=== PATIENT | male | born 1980 | race Caucasian/White ===

== ENCOUNTER 2020-07-18 12:57 | Outpatient (REF) | payer OTHER, SELFPAY | END 2020-07-18 12:58 | disposition home or self-care (01) | LOC: HO.LAB 12:57 | PROVIDERS: Visit Provider Internal Medicine | DX: Z20.828 Contact with and (suspected) exposure to other viral communicable diseases (principal) | CPT/HCPCS: 36415; C9803; U0003 ==

== ENCOUNTER 2021-01-05 02:30 | Emergency (ER) | payer OTHER, SELFPAY ==
--- NOTE | ~2021-01-05 | XR_ITS ---
EXAMINATION: XR HAND/WRIST, RIGHT CLINICAL INFORMATION: /o fx , 5th metacarpal, wrist pain COMPARISON: None TECHNIQUE: PA, lateral, and oblique views of the right hand and wrist. FINDINGS: A mildly comminuted transverse fracture is present at the fifth metacarpal necks with apex dorsal and apex medial angulation. Surrounding soft tissues are swollen and edematous. No additional fractures are identified. No appreciable intra-articular involvement. XR/XR hand wrist RT IMPRESSION: Mildly comminuted transverse fracture of the fifth metacarpal neck.
[2021-01-05 02:49] VITALS: BP 132/82; PULSE 68; RESP 16; TEMP 36.4; O2SAT 98; BMI 32.5
--- NOTE | 2021-01-05 03:02 | ED.EXTPRO ---
HPI - Extremity Problem General Chief complaint: Extremity Injury, Upper Stated complaint: Hand Injury Time Seen by Provider: 01/05/21 02:59 Source: patient Mode of arrival: ambulatory Limitations: no limitations History of Present Illness HPI Narrative: Patient comes emergency room complaining of right-sided hand pain. Prior to arrival, patient states that he punched a refrigerator. Patient complaining of pain on the 5th metacarpal. Patient denies any other injuries Related Data Previous Rx's Medication Instructions Recorded ibuprofen 600 mg PO Q6H PRN #14 tab 01/05/21 Allergies Allergy/AdvReac Type Severity Reaction Status Date / Time No Known Allergies Allergy Verified 01/05/21 02:52 [No Known Allergies*] Review of Systems Review of Systems: Constitutional : No Weight loss, No Fever, No Chills, No Night Sweats, No Fatigue, No Malaise ENT/Mouth : No Hearing loss, No Ear Pain, No Nasal Congestion, No Sinus Pain, No Hoarseness, No sore throat, No Rhinorrhea, No Swallowing Difficulty Eyes: No Eye Pain, No Swelling, No Redness, No Foreign Body, No Discharge, No Vision Changes Cardiovascular : No Chest Pain, No SOB, No Dyspnea on Exertion, No Orthopnea, No Edema, No Palpitations Respiratory : No Cough, No Sputum, No Wheezing, No Smoke Exposure, No Dyspnea Gastrointestinal : No Nausea, No Vomiting, No Diarrhea, No Constipation, No abdominal Pain, No Hematochezia, No Melena Genitourinary : no irregular bleeding, No Dysuria, No Urinary Frequency, No Hematuria, No Urinary Incontinence, No Urgency, No Flank Pain, No Urinary Flow Changes, No Hesitancy Musculoskeletal : right-sided head pain and wrist pain, localized swelling, No Myalgias, No Joint Swelling Skin : No Skin Lesions, No rash Neuro : No Weakness, No Numbness, No Paresthesias, No Loss of Consciousness, No Dizziness, No Headache Psych : No Anxiety/Panic, No Depression, No SI/HI/AH/VH, No Social Issues, Heme/Lymph: No Bruising, No Bleeding,No Lymphadenopathy Endocrine : No Polyuria, No Polydipsia, No Temperature Intolerance PMFSH Social History Social History Advance Directives: No Physical Exam Vital Signs: Vital Signs: Last Vital Signs Temp 97.6 F 01/05/21 02:49 Pulse 68 06/27/21 02:49 Resp 16 01/05/21 02:49 BP 132/82 01/05/21 02:49 Pulse Ox 98 01/05/21 02:49 Body Mass Index 32.5 Appearance: Alert. Oriented X3. No acute distress. Eyes: Pupils equal, round and reactive to light. ENT: Pharynx normal. Neck: Normal inspection. Neck supple. No lymph nodes noted. No crepitus CVS: Normal heart rate and rhythm. Pulses normal. Normal S1 and S2 Respiratory: No respiratory distress. Breath sounds normal. No Wheezing. No rales Abdomen: Soft and nontender. No rigidity. No distention. good BS x4 Skin: Skin warm and dry. Normal skin color. Normal skin turgor. Extremities: No lower extremity edema. swelling and deformity above the 5th metacarpal, likely fractured Neuro: Oriented X 3. No motor deficit. No sensory deficit. Moving all extermities. No slurred speech. Course Course Course Narrative: discussed x-ray with the patient, patient was given a volar splint, instructed to follow-up with orthopedics. discussed the x-ray with Orthopedics for follow-up MDM - Extremity (Nontraumatic) Imaging Data hand and wrist x rAY: Radiologist's impression: A mildly comminuted transverse fracture is present at the fifth metacarpal necks with apex dorsal and apex medial angulation. Surrounding soft tissues are swollen and edematous. No additional fractures are identified. No appreciable intra-articular involvement. XR/XR hand wrist RT IMPRESSION: Mildly comminuted transverse fracture of the fifth metacarpal neck. Discharge Plan Discharge Clinical Impression: Fracture, metacarpal Qualifiers: Encounter type: initial encounter Metacarpal bone: fifth Fracture type: closed Metacarpal location: neck Laterality: right Patient Disposition: Home, Self-Care Instructions: Boxer Fracture (ED) Additional Instructions: Please follow-up with your primary care physician tomorrow. If you have any worsening or new symptoms, please return to the emergency room or call 911 Prescriptions: New ibuprofen 600 mg tablet 600 mg PO Q6H PRN (Reason: pain) Qty: 14 RF: 0
[2021-01-05] MEDS: Ibuprofen 600 MG TABLET PO (03:07)
--- NOTE | 2021-01-05 04:19 | PC.NURSE ---
PT'S RIGHT HAND AND FOREARM SECURED WITH HARD SPLINT AND CAMDEN WRAP. GOOD CIRCULATION PRIOR TO AND FOLLOWING SPLINT.
== END 2021-01-05 04:21 | disposition home or self-care (01) ==
PROVIDERS: Emergency Provider Emergency Medicine
DX: S62.336A Displaced fracture of neck of fifth metacarpal bone, right hand, initial encounter for closed fracture (principal); W22.09XA Striking against other stationary object, initial encounter; Y93.9 Activity, unspecified; Y92.9 Unspecified place or not applicable; Y99.9 Unspecified external cause status
CPT/HCPCS: 73110; 73130; 99283

== ENCOUNTER → 2021-01-06 14:07 | Outpatient (BNVA) | payer OTHER, SELFPAY | PROVIDERS: Visit Provider Physician Assistant | DX: S62.366A Nondisplaced fracture of neck of fifth metacarpal bone, right hand, initial encounter for closed fracture (principal); W22.09XA Striking against other stationary object, initial encounter; Y93.9 Activity, unspecified; Y92.69 Other specified industrial and construction area as the place of occurrence of the external cause; Y99.8 Other external cause status | CPT/HCPCS: 26600; 29085; 99202 ==

== ENCOUNTER 2021-01-22 08:30 | Outpatient (REF) | payer OTHER, SELFPAY | END 2021-01-22 08:31 | disposition home or self-care (01) | LOC: HO.HOSX 08:30 | PROVIDERS: Visit Provider Orthopaedic Surgery | DX: Z13.89 Encounter for screening for other disorder (principal) ==

== ENCOUNTER 2021-05-14 20:09 | Emergency (ER) | payer OTHER, SELFPAY ==
[2021-05-14 20:18] VITALS: BP 123/87; PULSE 88; RESP 18; TEMP 36.6; O2SAT 98; BMI 29.5
[2021-05-14] MEDS: Tetracaine HCl/PF 0.5% Oph Sol 4 ML DROPS 3 DROP EYE-BOTH (20:21)
--- NOTE | 2021-05-14 20:22 | ED_ITS ---
HPI - General Adult General Chief complaint: General Medical Stated complaint: maced in the eyes Time Seen by Provider: 05/14/21 20:15 Source: patient Mode of arrival: ambulatory Limitations: no limitations History of Present Illness MD complaint: mace to eyes Onset (ago): minute(s) (just [employer]) Location: eyes Severity: severe Quality: burning Pain Consistency: constant Relieving factors: none Exacerbating factors: other (touching eyes) Associated symptoms: denies other symptoms Treatments prior to arrival: none Related Data Previous Rx's Medication Instructions Recorded ibuprofen 600 mg tablet 600 mg PO Q6H PRN #14 tab 01/05/21 Allergies Allergy/AdvReac Type Severity Reaction Status Date / Time No Known Allergies Allergy Verified 01/05/21 02:52 [No Known Allergies*] Review of Systems Review of Systems: Constitutional : No Fever, No Chills Eyes: pos Eye Pain, No Swelling, pos Redness Cardiovascular : No Chest Pain, No SOB Respiratory : No Cough, No Sputum, No Wheezing Gastrointestinal : No Nausea, No Vomiting Skin : No Skin Lesions, No rash Neuro : No Weakness, No Numbness, No Dizziness, No Headache PMFSH Past Medical History Attestation statement: The following information was validated with the patient. Medical History (Updated 05/14/21 @ 20:29 by Chikis Ludwig DO) Fracture of fifth metacarpal bone of right hand Social History Social History (Updated 05/14/21 @ 20:28 by Chikis Ludwig DO) Patient Tobacco Use Status: Tobacco use Unknown Current occupational status: employed Current occupation: [employer] Physical Exam Vital Signs: Vital Signs: Last Vital Signs Temp 97.8 F 05/14/21 20:18 Pulse 88 05/14/21 20:18 Resp 18 05/14/21 20:18 BP 123/87 05/14/21 20:18 Pulse Ox 98 05/14/21 20:18 Body Mass Index 29.5 Appearance: Alert. Oriented X3. Anxious mild acute distress. Eyes: Pupils equal, round and reactive to light. injected conjunctiva, tearing ENT: Pharynx normal. Neck: Normal inspection. Neck supple. CVS: Pulses normal. Respiratory: No respiratory distress. Abdomen: Soft and non-tender. Skin: Skin warm and dry. Normal skin color. Extremities: No lower extremity edema. Neuro: Oriented X 3. No motor deficit. No sensory deficit. Medical Decision Making MDM Narrative Medical decision making narrative: 40 yo male with mace to eyes - does not wear contact lens, apply tetracaine and irrigated as well as applied milk to the eyes - discussed topical treatments stable for DC after treatments Discharge Plan Discharge Clinical Impression: Toxic effect of pepper spray, Acute chemical conjunctivitis Patient Disposition: Home, Self-Care Instructions: Chemical Eye [place] (ED) Additional Instructions: return to ED for any worsening symptoms or concerns try to avoid rubbing eyes cold compresses can help do not wear contact lens Prescriptions: No Action ibuprofen 600 mg tablet 600 mg PO Q6H PRN (Reason: pain) Qty: 14 RF: 0 Stand Alone Forms: Work/School Release
== END 2021-05-14 20:58 | disposition home or self-care (01) ==
LOC: HO.ED 20:34
PROVIDERS: Emergency Provider Emergency Medicine
DX: T59.3X1A Toxic effect of lacrimogenic gas, accidental (unintentional), initial encounter (principal); H10.213 Acute toxic conjunctivitis, bilateral; Y92.9 Unspecified place or not applicable
CPT/HCPCS: 99282

== ENCOUNTER 2021-11-13 11:17 | Outpatient (REF) | payer OTHER, SELFPAY ==
[2021-11-13 11:54] LABS: COVID-19 Test Negative (Negative)
== END 2021-11-13 11:18 | disposition home or self-care (01) ==
LOC: HO.LAB 11:17
PROVIDERS: Visit Provider Internal Medicine
DX: Z20.822 Contact with and (suspected) exposure to COVID-19 (principal)
CPT/HCPCS: 87635; C9803

== ENCOUNTER 2024-07-22 12:24 | Emergency (ER) | payer SELFPAY ==
--- NOTE | ~2024-07-22 | XR_ITS ---
CLINICAL HISTORY: chest tightness Chest Radiographs, 2 views Comparison: None Findings: No cardiomegaly. Normal mediastinal contours. No pneumothorax. No opacity. No pleural effusion. Normal upper abdomen. No acute fracture. Impression: No acute findings. This document has been electronically signed by: Ana Kulkarni MD on 07/22/2024 13:30:32
--- NOTE | 2024-07-22 12:33 | ECG_ITS ---
Test Reason : cp Blood Pressure : */* mmHG Vent. Rate : 77 BPM Atrial Rate : 77 BPM P-R Int : 174 ms QRS Dur : 80 ms QT Int : 368 ms P-R-T Axes : 42 64 33 degrees QTcB Int : 416 ms Normal sinus rhythm with sinus arrhythmia Normal ECG No previous ECGs available Referred By: Generic ED Physician Electronically Signed By: JACK FERNANDEZ
[2024-07-22 12:41] VITALS: BP 146/88; PULSE 77; O2SAT 98
--- NOTE | 2024-07-22 12:45 | ED_ITS ---
HPI - General Adult General Chief complaint: General Medical Stated complaint: FLU LIKE,NAUSEA,CHEST TIGHTNESS PER EMS Time Seen by Provider: 07/22/24 15:03 Source: patient and RN notes reviewed Mode of arrival: ambulatory Limitations: no limitations History of Present Illness ED Provider: Adilia Monroe PA-C [facility] narrative: This is a 43-year-old male, with no known medical problems, who presents emergency department with complaints of headache, chest tightness, cough, congestion, which started this morning. Patient states that he woke up this morning, and started to have chest tightness, and shortness for breath. He states that this since resolved. He denies any chest pain, palpitations. Denies any sick contacts. He does report congestion. He states that he smokes marijuana, denies any other drug use. Denies any fevers, chills, abdominal pain, nausea, vomiting or diarrhea. No urinary symptoms. No other complaints or concerns at this time. MD complaint: Cough, congestion Onset (ago): day(s) Pain Consistency: constant Relieving factors: none Exacerbating factors: none Associated symptoms: cough, nausea/vomiting and shortness of breath Treatments prior to arrival: none Related Data Previous Rx's ?Medication ?Instructions ?Recorded ibuprofen 600 mg tablet 600 mg PO Q6H PRN pain #14 tabs 01/05/21 Allergies Allergy/AdvReac Type Severity Reaction Status Date / Time No Known Allergies Allergy Verified 07/22/24 12:49 [No Known Allergies*] Review of Systems 2 Review of Systems: Yes all other systems are reviewed and are negative Constitutional: Constitutional: Reports as per [facility] Past Medical History Medical History (Updated 07/22/24 @ 17:22 by BERENICE Stock) Fracture of fifth metacarpal bone of right hand Social History Social History (Updated 05/14/21 @ 20:28 by Ekta Ludwig DO) Patient Tobacco Use Status: Tobacco use Unknown Advance Directives: No Advance Directives Information Provided: No Do you have a plan to hurt others: No Plan Current occupational status: employed Current occupation: [employer] Physical Exam ED Vital Signs: Vital Signs - 24 hr 07/22/24 12:46 07/22/24 14:33 07/22/24 16:36 Temperature 98 F 98.1 F 98.1 F Pulse Rate 70 71 84 Respiratory Rate 19 17 18 Blood Pressure 118/64 126/62 131/65 Pulse Oximetry 98 97 95 Oxygen Delivery Method Room Air Room Air Room Air 07/22/24 17:24 Temperature 98.1 F Pulse Rate 84 Respiratory Rate 18 Blood Pressure 131/65 Pulse Oximetry 95 Oxygen Delivery Method Room Air BMI result Body Mass Index 31.0 Const General: cooperative, comfortable and no acute distress Orientation/consciousness: patient oriented x3 Limitations: no limitations HENMT Head: Yes normal to inspection, Yes normocephalic and Yes atraumatic Ears: hearing grossly normal bilaterally General nose exam: Normal external nose present Face and sinus: Yes normal facial exam Mouth: Normal oral and palatal mucosa present, oropharynx normal and moist mucous membranes Throat: Yes posterior oropharynx normal Eyes General: appearance normal, both eyes and all related structures Eyelids: Yes eyelids normal Conjunctivae: conjunctivae normal Sclerae: sclerae normal Pupils: Equal, round and reactive pupils present EOM: EOMs intact bilaterally Neck Neck: Yes normal visual inspection, Yes full ROM and Yes no lymphadenopathy Lymphatic: no lymphadenopathy noted Chest Chest palpation & inspection: normal inspection of the chest Resp Effort & Inspection: normal respiratory effort and able to speak in complete sentences Auscultation: clear to auscultation bilaterally, no crackles, no rales, no rhonchi and no wheezes Cardio Rate: regular rate Rhythm: regular rhythm Heart sounds: S1 normal heart sound present and S2 normal heart sound present GI Inspection: Yes normal to inspection Skin General skin exam: no rashes or lesions noted Trauma: no lacerations or abrasions Wounds: no wounds Neuro General: patient oriented x3 and moves all extremities Cranial nerves: Yes Equal, round and reactive pupils present Extrem General: Yes normal to inspection Right upper extremity: normal to inspection Left upper extremity: normal to inspection Right lower extremity: normal to inspection Left lower extremity: normal to inspection Course Course Course Narrative: This is a Rapid Medical Examination (RME) performed by Blair Travis PA-C in triage. Full HPI, ROS, assessment and treatment plan per primary provider in the Main ED. 43 yo male here via EMS from home for eval of headache, nasal congestion, nausea, sob, chest tightness when began last night, worsened this morning. no vomiting. Plan: labs, ekg, cxr Reevaluation(s) Reevaluation #1: Workup reassuring, troponin x 2 negative. Pt eager for discharge. VSS. He is feeling well. Stable for d/c. Symptomos likely viral in nature. Given return precautions. Medical Decision Making Medical Decision Making [facility] Narrative: This is a 43-year-old male, with no known medical problems, who presents emergency department with complaints of headache, chest tightness, cough, congestion which started last night into this morning. On arrival, vital signs within normal limits. He is speaking full sentences under no acute distress. Lungs are clear to auscultation bilaterally. He states that the chest tightness has since resolved. Denies history of asthma or COPD. He smokes marijuana, no other drug use. Labs were performed prior to my assessment, he has no leukocytosis, stable H&H, chemistry with no electrolyte derangement. First troponin less than 2.7, flu, RSV, COVID negative. Chest x-ray unremarkable. Will perform repeat troponin. Unlikely ACS presentation, likely viral URI in nature. We will continue to closely monitor. Differential Diagnosis Differential Diagnoses: The differential diagnosis associated with the presentation includes URI, sinusitis, pneumonia, ACS-unlikely Admission/Observation Consideration of admission/observation: Escalation of care including admission/observation considered Lab Data [facility] Lab Attestation statement: I reviewed the patient's lab results. See [facility] 07/22/24 13:15 07/22/24 13:15 Labs: Lab Results 07/22/24 07/22/24 07/22/24 Range/Units 13:14 13:15 16:31 WBC 5.2 (4.8-10.8) X10*3/uL RBC 4.82 (4.60-5.80) X10*6/uL Hgb 13.6 L (14.0-18.0) g/dl Hct 40.7 L (42.0-52.0) % MCV 84.4 (80.0-98.0) fL MCH 28.2 (27.0-33.0) pg MCHC 33.4 (31.0-36.0) g/dl RDW 12.9 (11.0-16.0) % Plt Count 175 (160-400) X10*3/uL MPV 10.2 (9.4-12.4) fL Immature Gran % (Auto) 0.2 (0.0-0.4) % Neut % (Auto) 66.2 (45-73) % Lymph % (Auto) 23.2 (20-40) % [place] % (Auto) 8.3 (2-11) % Eos % (Auto) 1.7 (0-4) % Baso % (Auto) 0.4 (0-2) % Lymph # (Auto) 1.2 (1.2-4.9) X10*3/uL [place] # (Auto) 0.4 (0.1-1.2) X10*3/uL Eos # (Auto) 0.1 (0.0-0.4) X10*3/uL Baso # (Auto) 0.0 (0.0-0.2) X10*3/uL Abs Immat Gran (auto) 0.01 (0.00-0.03) X10*3/uL Absolute Neuts (auto) 3.4 (2.0-8.3) x10*3/uL Absolute Nucleated RBC 0.000 (0.0-0.012) X10*3/uL Nucleated RBC % (auto) 0.0 (0.0-0.2) /100WBC Sodium 140 (135-145) mmol/L Potassium 3.9 (3.3-5.1) mmol/L Chloride 108 (96-108) mmol/L Carbon Dioxide 28 (22-29) mmol/L Anion Gap 8 L (12-20) BUN 15 (9-16) mg/dL Creatinine 1.24 (0.5-1.4) mg/dL Estim Creat Clear Calc 89.2 Estimated GFR > 60 Random Glucose 114 (60-115) mg/dL Calcium 8.9 (8.4-10.2) mg/dL Magnesium 2.0 (1.6-2.6) mg/dL Total Bilirubin 0.2 (0.0-1.0) mg/dL AST 29 (5-37) U/L ALT 29 (0-40) U/L Alkaline Phosphatase 44 (39-117) U/L Troponin I High Sens < 2.7 < 2.7 (<3.5-35.0) ng/L Total Protein 7.7 (6.5-8.0) g/dL Albumin 4.1 (3.5-5.0) g/dL Lipase 18 (8-78) U/L Influenza Type A (PCR) NEGATIVE (Negative) Influenza Type B (PCR) NEGATIVE (Negative) RSV RNA Qual (PCR) NEGATIVE (Negative) SARS-CoV-2 RNA (RT-PCR) NEGATIVE (Negative) Independent Interpretation I performed an independent interpretation of an: EKG Interpretation: Normal sinus rhythm at a ventricular rate of 77 beats per minute, [place] interval 174, QT QTC 368/416, no ST elevation or depression. Radiology Impression Discussion of test interpretation with radiology: I have reviewed the radiologist's reading. Radiologist Impression: CLINICAL HISTORY: chest tightness Chest Radiographs, 2 views Comparison: None Findings: No cardiomegaly. Normal mediastinal contours. No pneumothorax. No opacity. No pleural effusion. Normal upper abdomen. No acute fracture. Impression: No acute findings. This document has been electronically signed by: Ana Kulkarni MD on 07/22/2024 13:30:32 Dictated By: Ana Sloan MD Discharge Plan Discharge Clinical Impression: URI (upper respiratory infection) Patient Disposition: Home, Self-Care Instructions: Upper Respiratory Infection (ED) Additional Instructions: You were seen in the emergency department today. Your workup today was reassuring. You tested negative for COVID, flu, RSV. Your chest x-ray did not show a pneumonia. Your EKG was normal. Your blood work also was normal. Drink plenty of fluids get plenty of rest. You likely have a virus causing you to have the symptoms. Alternate between ibuprofen and or Tylenol as needed pain. If any new or worsening symptoms occur including but not limited to high fevers not responding to Tylenol or Motrin, severe chest pain, shortness of breath, please seek emergent care. Prescriptions: No Action ibuprofen 600 mg tablet 600 mg PO Q6H PRN (Reason: pain) Qty: 14 0RF Interventions: ED Discharge Assessment Last Done: 07/22/24 17:24 Discharge Date/Time: 07/22/24 17:25 Print Language: Rw[place]an
[2024-07-22 12:46] VITALS: BP 118/64; PULSE 70; RESP 19; TEMP 36.6; O2SAT 98; BMI 31.0
[2024-07-22 13:31] LABS: MANUAL DIFF FLAG NO
[2024-07-22 13:33] LABS: Basophils Percent Auto 0.4 % (0-2); Eosinophils Absolute Auto 0.1 X10*3/uL (0.0-0.4); Eosinophils Percent Auto 1.7 % (0-4); Hematocrit 40.7 % (42.0-52.0); Hemoglobin 13.6 g/dl (14.0-18.0); Imm Gran Abs Auto 0.01 X10*3/uL (0.00-0.03); Imm Gran Pct Auto 0.2 % (0.0-0.4); Lymphocytes Absolute Auto 1.2 X10*3/uL (1.2-4.9); Lymphocytes Percent Auto 23.2 % (20-40); Mean Corpuscular HGB Conc 33.4 g/dl (31.0-36.0); Mean Corpuscular Hemoglobin 28.2 pg (27.0-33.0); Mean Corpuscular Volume 84.4 fL (80.0-98.0); Mean Platelet Volume 10.2 fL (9.4-12.4); Monocytes Absolute Auto 0.4 X10*3/uL (0.1-1.2); Monocytes Percent Auto 8.3 % (2-11); Neutrophils Absolute Auto 3.4 x10*3/uL (2.0-8.3); Neutrophils Percent Auto 66.2 % (45-73); Platelet Count 175 X10*3/uL (160-400); Red Blood Count 4.82 X10*6/uL (4.60-5.80); Red Cell Distribution Width 12.9 % (11.0-16.0); White Blood Count 5.2 X10*3/uL (4.8-10.8)
[2024-07-22 14:00] LABS: Alanine Aminotransferase 29 U/L (0-40); Albumin Level 4.1 g/dL (3.5-5.0); Alkaline Phosphatase 44 U/L (39-117); Anion Gap 8 (12-20); Aspartate Amino Transferase 29 U/L (5-37); Bilirubin Total 0.2 mg/dL (0.0-1.0); Blood Urea Nitrogen 15 mg/dL (9-16); Calcium 8.9 mg/dL (8.4-10.2); Carbon Dioxide 28 mmol/L (22-29); Chloride 108 mmol/L (96-108); Creatinine Clr Calc Pharmacy 89.2; Estimated Glomerular Filt Rate > 60; Glucose Random 114 mg/dL (60-115); Lipase 18 U/L (8-78); Potassium 3.9 mmol/L (3.3-5.1); Sodium 140 mmol/L (135-145); Total Protein 7.7 g/dL (6.5-8.0); Troponin-I High Sensitivity < 2.7 ng/L (<3.5-35.0)
[2024-07-22 14:12] LABS: Influenza A PCR NEGATIVE (Negative); Influenza B PCR NEGATIVE (Negative); Resp Syncy Virus RNA Qual PCR NEGATIVE (Negative); SARS COV2 PCR INHOUSE NEGATIVE (Negative)
[2024-07-22 14:33] VITALS: BP 126/62; PULSE 71; RESP 17; TEMP 36.7; O2SAT 97
[2024-07-22 16:36] VITALS: BP 131/65; PULSE 84; RESP 18; TEMP 36.7; O2SAT 95
[2024-07-22 17:04] LABS: Troponin-I High Sensitivity < 2.7 ng/L (<3.5-35.0)
[2024-07-22 17:24] VITALS: BP 131/65; PULSE 84; RESP 18; TEMP 36.7; O2SAT 95
== END 2024-07-22 17:25 | disposition home or self-care (01) ==
PROVIDERS: Physician Assistant Medical; Emergency Provider Emergency Medicine
DX: J06.9 Acute upper respiratory infection, unspecified (principal); R07.9 Chest pain, unspecified; R05.9 Cough, unspecified; R11.2 Nausea with vomiting, unspecified; R06.02 Shortness of breath; F12.90 Cannabis use, unspecified, uncomplicated; Z03.818 Encounter for observation for suspected exposure to other biological agents ruled out
CPT/HCPCS: 0241U; 36415; 71046; 80053; 83690; 83735; 84484; 85025; 93005; 99283; 99284

== ENCOUNTER → 2024-07-22 12:33 | Outpatient (BNV) | payer SELFPAY | PROVIDERS: Emergency Provider Emergency Medicine; Visit Provider Internal Medicine | DX: R07.9 Chest pain, unspecified (principal) | CPT/HCPCS: 93010 ==